=== PATIENT | male | born 1940 | race Caucasian/White ===

== ENCOUNTER 2016-12-20 14:53 | Emergency (ER) | payer MEDICARE, OTHER ==
[~2016-12-20] VITALS: Ht 185.4 cm; Wt 88.5 kg
[~2016-12-20 14:53] MED LIST: DEXL60CA3 PO; GABA-534 PO; LITH300T PO; PARO20TA51 PO; RASA1TAB PO; TIOT18CA3 IH
[2016-12-20] MEDS ORDERED: ACETAMINOPHEN ES 500 MG TABLET PO ONE (15:00)
--- NOTE | 2016-12-20 15:00 | NUR ---
BIBRA 878 FROM HOME C/O R LOWER RIB CAGE PAIN S/P FALL, -KO. NO SOB. SKIN IS WARM TO TOUCH AND NON DIAPHORETIC. AFEBRILE. VSS. WILL CONT TO MONITOR
[2016-12-20] MEDS ORDERED: ACETAMINOPHEN ES 500 MG TABLET ONE (15:15)
[2016-12-20 15:17] LABS: BASOPHILS # (AUTO) 0.1 /CMM (0.0-0.2); BASOPHILS % (AUTO) 0.7 % (0.0-2.0); EOSINOPHILS # (AUTO) 0.3 /CMM (0.0-0.7); HEMATOCRIT 43 % (39-51); HEMOGLOBIN 14.3 g/dL (13.5-17.5); LYMPHOCYTES # (AUTO) 1.8 /CMM (0.8-4.8); LYMPHOCYTES % (AUTO) 22.5 % (20.0-44.0); MEAN CORPUSCULAR HEMOGLOBIN 30 PG (26.0-33.0); MEAN CORPUSCULAR HGB CONC 33 g/dl (31.0-36.0); MEAN CORPUSCULAR VOLUME 89 fL (80-96); MONOCYTES # (AUTO) 0.7 /CMM (0.1-1.30); MONOCYTES % (AUTO) 8.9 % (2.0-12.0); NEUTROPHILS # (AUTO) 5.1 /CMM (1.8-8.9); NEUTROPHILS % (AUTO) 63.9 % (43.0-81.0); PLATELET COUNT (AUTO) 280 /CMM (150-450); RDW COEFFICIENT OF VARIATION 13.5 (11.5-15.0); RED BLOOD CELL COUNT(AUTO) 4.78 MIL/uL (4.5-6.0)
[2016-12-20 15:25] LABS: CALCIUM, SERUM 8.7 mg/dL (8.5-10.1); CARBON DIOXIDE 31 mmol/L (21-32); CHLORIDE 108 mmol/L (98-107); CREATININE 1.1 mg/dL (0.6-1.3); GLUCOSE 116 mg/dL (74-106); POTASSIUM 4.2 mmol/L (3.5-5.1); SODIUM SERUM 143 mmol/L (136-145); UREA NITROGEN, BLOOD 20 mg/dL (7-18)
[2016-12-20 15:34] LABS: TROPONIN I < 0.017 ng/mL (0.00-0.056)
[2016-12-20 15:35] LABS: INR 0.97 (0.87-1.13); PROTHROMBIN TIME 10.4 SECS (9.5-12.7)
--- NOTE | 2016-12-20 15:41 | NUR ---
PATIENT TAKEN TO RADIOLOGY DEPARTMENT
--- NOTE | 2016-12-20 16:07 | NUR ---
pt on bed, awake. vss
[2016-12-20] MEDS ORDERED: KETOROLAC TROMETHAMINE INJ 30 MG/ML VIAL ONE ×2 (16:35→17:00)
--- NOTE | 2016-12-20 16:45 | NUR ---
Dr. Chan at bedside discussing plan of care
[2016-12-20] MEDS ORDERED: KETOROLAC TROMETHAMINE INJ 30 MG/ML VIAL IV ONE (17:00)
--- NOTE | 2016-12-20 17:05 | NUR ---
IV removed. Catheter intact and site benign. Pressure and 4x4 applied to site. No bleeding noted.
--- NOTE | 2016-12-20 17:05 | NUR ---
Kristopher brooks in [facility] - 12/20/16 at 1707 by EDWARD Patient discharged to home in stable condition. Written and verbal after care instructions given. Patient verbalizes understanding of instruction.
--- NOTE | 2016-12-20 17:07 | NUR ---
rt at bedside
[2016-12-20 17:32] VITALS: BP 120/68
--- NOTE | 2016-12-20 17:33 | NUR ---
Patient discharged to home in stable condition. Written and verbal after care instructions given. Patient verbalizes understanding of instruction.
== END 2016-12-20 17:33 | disposition home or self-care (01) ==
LOC: ER 15:03
DX: S22.31XA Fracture of one rib, right side, initial encounter for closed fracture (principal); I10 Essential (primary) hypertension; F10.20 Alcohol dependence, uncomplicated; F17.200 Nicotine dependence, unspecified, uncomplicated; W18.39XA Other fall on same level, initial encounter; Y93.89 Activity, other specified; Y92.89 Other specified places as the place of occurrence of the external cause; Y99.9 Unspecified external cause status
CPT/HCPCS: 36415; 71010-TC; 71250-TC; 72192-TC; 74150-TC; 80048-TC; 84484-TC; 85025-TC; 85730-TC; A4606; J1885; Z7610

== ENCOUNTER 2017-03-28 14:48 | Inpatient (IN) | payer MEDICARE, OTHER ==
[~2017-03-28] VITALS: Ht 185.4 cm; Wt 93.6 kg
--- NOTE | 2017-03-28 15:00 | NUR ---
PT C/O weakness and dizziness noted today- BB family to ER for evaluation and treatment; home O3 at 3LPM/NC . Placed on monitor. Awaiting md order.
[2017-03-28] MEDS ORDERED: IV NS 0.9% 1,000 ML BAG IV ONE (15:30)
[2017-03-28 15:52] LABS: BASOPHILS # (AUTO) 0.4 /CMM (0.0-0.2); BASOPHILS % (AUTO) 4.1 % (0.0-2.0); EOSINOPHILS # (AUTO) 0.3 /CMM (0.0-0.7); EOSINOPHILS % (AUTO) 3.4 % (0.0-6.0); HEMATOCRIT 45 % (39-51); HEMOGLOBIN 14.6 g/dL (13.5-17.5); LYMPHOCYTES # (AUTO) 1.6 /CMM (0.8-4.8); LYMPHOCYTES % (AUTO) 16.6 % (20.0-44.0); MEAN CORPUSCULAR HEMOGLOBIN 30 PG (26.0-33.0); MEAN CORPUSCULAR HGB CONC 33 g/dl (31.0-36.0); MEAN CORPUSCULAR VOLUME 91 fL (80-96); MONOCYTES # (AUTO) 0.7 /CMM (0.1-1.30); MONOCYTES % (AUTO) 6.7 % (2.0-12.0); NEUTROPHILS # (AUTO) 6.9 /CMM (1.8-8.9); NEUTROPHILS % (AUTO) 69.2 % (43.0-81.0); PLATELET COUNT (AUTO) 259 /CMM (150-450); RDW COEFFICIENT OF VARIATION 12.6 (11.5-15.0); RED BLOOD CELL COUNT(AUTO) 4.96 MIL/uL (4.5-6.0); WHITE BLOOD COUNT (AUTO) 9.9 K/uL (4.3-11.0)
--- NOTE | 2017-03-28 15:55 | NUR ---
PT TAKEN TO CT VIA [facility]
[2017-03-28 16:04] LABS: CALCIUM, SERUM 8.7 mg/dL (8.5-10.1); CARBON DIOXIDE 25 mmol/L (21-32); CHLORIDE 105 mmol/L (98-107); CREATININE 1.4 mg/dL (0.6-1.3); GLUCOSE 121 mg/dL (74-106); POTASSIUM 4.1 mmol/L (3.5-5.1); SODIUM SERUM 139 mmol/L (136-145); UREA NITROGEN, BLOOD 20 mg/dL (7-18)
[2017-03-28] MEDS ORDERED: IV SET PRIMARY PUMP SET 1 EA INFUS.SET MC ONE ×3 (16:05→20:23)
[2017-03-28] MEDS ORDERED: IV NS 0.9% 1,000 ML ONE ×2 (16:05→20:22)
[2017-03-28 16:11] LABS: TROPONIN I < 0.017 ng/mL (0.00-0.056)
[2017-03-28 16:16] LABS: ALBUMIN 3.9 g/dL (3.4-5.0); ALKALINE PHOSPHATASE 93 U/L (46-116); ASPARTATE AMINOTRANSFERASE 20 U/L (15-37); BILIRUBIN,DIRECT 0.1 mg/dL (0.0-0.2); BILIRUBIN,TOTAL 0.4 mg/dL (0.2-1.0); TOTAL PROTEIN, SERUM 7.5 g/dL (6.4-8.2)
[2017-03-28 16:28] LABS: PROTHROMBIN TIME 10.4 SECS (9.5-12.7)
[2017-03-28 16:31] LABS: ALANINE AMINOTRANSFERASE 16 U/L (12-78)
[2017-03-28] MEDS ORDERED: LEVOFLOXACIN 750 MG /D5W 150ML 150 ML IV ONE (17:25)
[2017-03-28] MEDS ORDERED: LEVOFLOXACIN 750 MG /D5W 150ML PIGGYBACK IV ONE (17:30)
[2017-03-28] MEDS ORDERED: ALFU10TA10 PO (17:34)
[2017-03-28] MEDS ORDERED: UMEC1BLS IH (17:34)
[2017-03-28] MEDS ORDERED: GABA-534 PO (17:34)
[2017-03-28] MEDS ORDERED: diphenhydrAMINE HCL 50 MG/ML VIAL IV ONE (18:30)
[2017-03-28] MEDS ORDERED: diphenhydrAMINE HCL 50 MG/ML VIAL ONE (18:47)
--- NOTE | 2017-03-28 19:24 | NUR ---
GAVE REPORT TO [facility] ROOM 312-1. PLACED ON MONITOR. DR BURLESON ADMITTING. DX PNA AND DIZZINESS. TRANSFER VIA ACLS PROTOCOL.
[2017-03-28 19:40] VITALS: BP 133/87
--- NOTE | 2017-03-28 19:40 | NUR ---
RN NOTES ADMITTED A 77 YEARS OLD, MALE PT FROM ER VIA [facility] WITH PRIMARY DIAGNOSIS OF NEAR SYNCOPE UNDER DR SILVA. PT ALERT AND ORIENTED X4, DENIES ANY PAIN AND DISCOMFORT AT THIS TIME. VITAL SIGNS STABLE, WITH O2 INHALATION AT 2LPM VIA NC WITH GOOD SATURATION. ATTACHED TO TELE MONITOR WHICH READS SINUS RHYTHM WITH HEART RATE OF 68. SKIN AND BODY ASSESSMENT DONE, SKIN CLEAR AND INTACT. PT COUGH AT TIMES, NON PRODUCTIVE. ASSISTED TO THE BATHROOM WITH STEADY GAIT. KEPT COMFORTABLE AND ATTENDED. ALL ORDERS NOTED AND CARRIED OUT. WILL CONTINUE TO MONITOR PT.
[2017-03-28 20:00] VITALS: BP 133/87
[2017-03-28] MEDS ORDERED: HYDROCODONE/APAP 5/325MG 1 EACH TABLET PO PRN (20:00)
[2017-03-28] MEDS ORDERED: ENOXAPARIN SODIUM 30 MG/0.3 ML DISP.SYRIN SQ SCH (20:00)
[2017-03-28] MEDS ORDERED: ONDANSETRON HCL/PF 4 MG/2 ML VIAL IVP PRN (20:00)
[2017-03-28] MEDS ORDERED: MAG HYDROX/AL HYDROX/SIMETH 30 ML UDC PO PRN (20:00)
[2017-03-28] MEDS ORDERED: MAGNESIUM HYDROXIDE 30 ML UDC PO PRN (20:00)
[2017-03-28] MEDS ORDERED: ACETAMINOPHEN 325 MG TABLET PO PRN (20:00)
[2017-03-28] MEDS ORDERED: ZOLPIDEM TARTRATE 5 MG TABLET PO PRN (20:00)
[2017-03-28] MEDS ORDERED: Z GUARD REMEDY 2 OZ OINT TP PRN (20:00)
[2017-03-28] MEDS ORDERED: ENOXAPARIN SODIUM 30 MG/0.3 ML DISP.SYRIN ONE (20:13)
[2017-03-28] MEDS ORDERED: GABAPENTIN 300 MG CAPSULE ONE (20:14)
[2017-03-28] MEDS: IV NS 0.9% 1,000 ML IV PRN (20:29)
[2017-03-28] MEDS ORDERED: LITHIUM CARBONATE (300 MG CAP) 300 MG CAPSULE PO SCH (22:00)
[2017-03-28] MEDS ORDERED: GABAPENTIN 300 MG CAPSULE PO SCH (22:00)
[2017-03-28] MEDS ORDERED: LITHIUM CARBONATE (300 MG CAP) 300 MG CAPSULE ONE (22:55)
[2017-03-29] VITALS: BP 97/48
--- NOTE | 2017-03-29 07:05 | NUR ---
RN NOTES PT ASLEEP, HOB ELEVATED, BREATHING REGULAR AND UNLABORED, NO SIGNS OF DISTRESS AND DISCOMFORT NOTED. ON 2LPM O2 VIA NC WITH GOOD SATURATION. VITAL SIGNS STABLE, AFEBRILE. NO COMPLAIN OF PAIN OR DIZZINESS. NO EPISODE OF NAUSEA, VOMITING AND DIARRHEA. TELEMONITOR READS SINUS RHYTHM WITH HEART RATE OF 66. ASSISTED TO THE BATHROOM, WITH STEADY GAIT. ALL NEEDS ATTENDED. WILL ENDORSE TO MORNING RN FOR CONTINUITY OF CARE.
[2017-03-29 07:07] VITALS: BP 131/78
--- NOTE | 2017-03-29 07:10 | NUR ---
RN NOTES PATIENT AWAKE ALERT AND VERBALLY RESPONSIVE, ABLE TO MAKE NEEDS KNOWN. RESPIRATIONS EVEN AND UNLABORED, DENIES ANY PAIN OR DISCOMFORT. IV SITE PATENT AND INTACT NO REDNESS OR INFILTRATION NOTED. EXPLAINED CURRENT TREATMENT PLAN TO PATIENT WITH NOTED VERBAL UNDERSTANDING PT STATING WANTING TO BE DISCHARGED, WILL CALL AND MAKE MD AWARE, WILL CONTINUE TO MONITOR
[2017-03-29 07:11] LABS: BASOPHILS % (AUTO) 0.4 % (0.0-2.0); EOSINOPHILS # (AUTO) 0.3 /CMM (0.0-0.7); EOSINOPHILS % (AUTO) 4.2 % (0.0-6.0); HEMATOCRIT 39 % (39-51); HEMOGLOBIN 13.2 g/dL (13.5-17.5); LYMPHOCYTES # (AUTO) 1.8 /CMM (0.8-4.8); LYMPHOCYTES % (AUTO) 23.3 % (20.0-44.0); MEAN CORPUSCULAR HEMOGLOBIN 31 PG (26.0-33.0); MEAN CORPUSCULAR HGB CONC 34 g/dl (31.0-36.0); MEAN CORPUSCULAR VOLUME 91 fL (80-96); MONOCYTES # (AUTO) 0.7 /CMM (0.1-1.30); MONOCYTES % (AUTO) 9.1 % (2.0-12.0); NEUTROPHILS # (AUTO) 4.8 /CMM (1.8-8.9); PLATELET COUNT (AUTO) 230 /CMM (150-450); RDW COEFFICIENT OF VARIATION 13.3 (11.5-15.0); RED BLOOD CELL COUNT(AUTO) 4.27 MIL/uL (4.5-6.0); WHITE BLOOD COUNT (AUTO) 7.7 K/uL (4.3-11.0)
[2017-03-29 07:20] LABS: CALCIUM, SERUM 8.4 mg/dL (8.5-10.1); CARBON DIOXIDE 31 mmol/L (21-32); CHLORIDE 110 mmol/L (98-107); GLUCOSE 104 mg/dL (74-106); MAGNESIUM 2.2 mg/dL (1.8-2.4); POTASSIUM 4.1 mmol/L (3.5-5.1); SODIUM SERUM 142 mmol/L (136-145); UREA NITROGEN, BLOOD 17 mg/dL (7-18)
[2017-03-29 08:00] VITALS: BP 131/78
--- NOTE | 2017-03-29 08:30 | NUR ---
RN NOTES CALLED DR. BURLESON TO MAKE MD AWARE THAT PT WANTS TO BE SEEN, PER DR. BURLESON PT TO BE SEEN BY BLANK DRILLER, MAY HAVE MEAL, WILL CONTINUE TO MONITOR,PT MADE AWARE
[2017-03-29] MEDS ORDERED: Medication Not On Formulary EA (Umeclidinium Brm/Vilanterol Tr (Anoro Ellipta 62.5-25 Mc IH SCH (09:00)
[2017-03-29] MEDS ORDERED: GABAPENTIN 300 MG CAPSULE PO SCH (09:00)
[2017-03-29] MEDS ORDERED: PAROXETINE HCL 20 MG TABLET PO SCH (09:00)
[2017-03-29] MEDS ORDERED: Medication Not On Formulary EA (Alfuzosin Hcl 10 MG) PO SCH (09:00)
[2017-03-29] MEDS: IV NS 0.9% 1,000 ML IV PRN (10:03)
--- NOTE | 2017-03-29 11:40 | NUR ---
RN NOTES PATIENT SEEN BY MD WITH ORDERS FOR DISCHARGE, NO SKIN ISSUES NOTED. WILL CONTINUE TO MONITOR AND ASSIST WITH DISCHARGE PROCESS. PATIENTS IV ACCESS REMOVED WITH NO ASE NOTED PER REQUEST
--- NOTE | 2017-03-29 12:15 | NUR ---
RN NOTES PATIENT AWAKE ALERT AND VERBALLY RESPONSIVE, ABLE TO MAKE NEEDS KNOWN. RESPIRATIONS EVEN AND UNLABORED, DENIES ANY PAIN OR DISCOMFORT.ALL DISCHARGE INSTRUCTIONS REVIEWED WITH NOTED VERBAL UNDERSTANDING. ALL BELONGINGS ACCOUNTED FOR, PT WILL HAVE APPT WITH PRIMARY MANAGER TRUCK OUT PATIENT. WILL CONTINUE TO MONITOR
[2017-03-29] MEDS ORDERED: LITHIUM CARBONATE (300 MG CAP) 300 MG CAPSULE PO SCH ×2 (22:00)
== END 2017-03-29 12:10 | disposition home or self-care (01) | DRG 684 ==
LOC: ER 14:50 → TELE 19:18
PROVIDERS: ADMIT Internal Medicine; ATTEND Internal Medicine
DX: N17.0 Acute kidney failure with tubular necrosis (principal); R55 Syncope and collapse; J44.9 Chronic obstructive pulmonary disease, unspecified; I25.10 Atherosclerotic heart disease of native coronary artery without angina pectoris; F32.9 Major depressive disorder, single episode, unspecified; N40.0 Benign prostatic hyperplasia without lower urinary tract symptoms; E86.0 Dehydration; I10 Essential (primary) hypertension; G62.9 Polyneuropathy, unspecified; Z99.81 Dependence on supplemental oxygen; Z79.899 Other long term (current) drug therapy; Z91.81 History of falling
CPT/HCPCS: 36415; 70450-TC; 71010-TC; 71250-TC; 80048-TC; 80076-TC; 83735-TC; 84100-TC; 84484-TC; 85025-TC; 85730-TC; 87081-TC; A4606; J1200; J1650; J1956; J7030; Z7610